=== PATIENT | female | born 1965 | race Caucasian/White ===

== ENCOUNTER → 2017-01-25 | Outpatient (CLI) | payer BC, OTHER ==
[2017-01-25 05:50] LABS: BASOPHILS % (AUTO) 1.1 % (0-1); EOSINOPHILS # (AUTO) 0.27 10*3/UL; HEMATOCRIT 39.8 % (37.0-47.0); HEMOGLOBIN 13.6 g/dL (12.0-16.0); LYMPHOCYTES # (AUTO) 3.34 10*3/uL; MEAN CORPUSCULAR HEMOGLOBIN 30.5 PG (27-31); MEAN CORPUSCULAR HGB CONC 34.2 g/dL (33-37); MEAN CORPUSCULAR VOLUME 89.2 FL (81-99); MEAN PLATELET VOLUME 8.7 FL (7.4-12.2); MONOCYTES # (AUTO) 0.72 10*3/UL (0.3-0.8); NEUTROPHILS # (AUTO) 4.51 10*3/UL; NEUTROPHILS % (AUTO) 50.4 % (50-80); RED BLOOD COUNT 4.46 10^6/uL (4.20-5.40)
[2017-01-25 05:59] LABS: BILIRUBIN,URINE NEGATIVE (NEG); COLOR,URINE YELLOW; GLUCOSE, URINE (UA) NEGATIVE (NEG); NITRATE,URINE NEGATIVE (NEG); OCCULT BLOOD,URINE MODERATE (NEG); PROTEIN,URINE NEGATIVE (NEG); UROBILINOGEN,URINE 0.2 mg/dL (0.2)
[2017-01-25 06:00] LABS: BLOOD UREA NITROGEN 13 mg/dL (7-22); BUN/CREATININE RATIO 18.57 (6-20); CALCIUM 9.3 mg/dL (8.7-10.7); CHOL/HDL RATIO 5.25 RATIO (0-4.0); CLARITY,URINE CLEAR (CLEAR); EST GLOMERULAR FILTRATION > 60 (>60 ml/min/1.73m(2)); HDL CHOLESTEROL 44 mg/dL (40-150); SERUM ALBUMIN 4.3 g/dL (3.5-4.8); SERUM CHOLESTEROL 231 mg/dL (120-200)
[2017-01-25 06:01] LABS: URINE SAMPLE TYPE CLEAN CATCH URINE
[2017-01-25 06:05] LABS: SQUAMOUS EPITHELIAL CELL,UR MANY
[2017-01-25 06:06] LABS: BACTERIA,URINE FEW; RENAL EPITHELIAL CELLS,URINE MODERATE; URINE CRYSTALS FEW
[2017-01-25 06:08] LABS: YEAST,URINE FEW
[2017-01-25 06:22] LABS: PLATELET MORPHOLOGY COMMENT NORMAL MORPHOLOGY (NORM); RBC MORPHOLOGY COMMENT NORMAL MORPHOLOGY (NORM); WBC MORPHOLOGY COMMENT NORMAL MORPHOLOGY (NORM)
== END ==
LOC: LAB 05:35
PROVIDERS: ATTEND Internal Medicine
DX: I10 Essential (primary) hypertension (principal); I49.9 Cardiac arrhythmia, unspecified; K21.9 Gastro-esophageal reflux disease without esophagitis; F17.200 Nicotine dependence, unspecified, uncomplicated
CPT/HCPCS: 36415; 80053; 80061; 81001; 84443; 85025

== ENCOUNTER 2017-04-02 16:42 | Emergency (ER) | payer BC, OTHER ==
[2017-04-02] MEDS ORDERED: Sodium Chloride 0.9% 1,000 ML PRIMARY IV ONE (17:11)
[2017-04-02] MEDS ORDERED: LORazepam 2 MG/1 ML VIAL IVP ONE (17:12)
[2017-04-02 17:21] VITALS: RESP 22; TEMP 97.5
[2017-04-02] MEDS ORDERED: HYDROmorphone 2 MG/1 ML ONE (18:04)
[2017-04-02] MEDS ORDERED: HYDROmorphone 2 MG/1 ML IVP ONE (18:06)
[2017-04-02] MEDS ORDERED: Amoxicill/Clav 875/125mg Tab 1 TAB TAB PO SCH (19:00)
--- NOTE | 2017-04-02 23:43 | PDOC ---
General Adult HPI - General Chief Complaint: Headache Stated Complaint: "panic attack"; ears stopped up; sinus pain on right Date Seen by Provider: 04/02/17 Time Seen by Provider: 16:50 Source: POSITIVE: Patient, Spouse Exam Limitations: POSITIVE: No limitations Nurse's Notes Reviewed & Considered: Yes - History of Present Illness Initial Comment: The patient is a 52-year-old female. She states that she is having a "panic attack". She describes paresthesias to her hands and feet. She states she has the sensation of "heart palpitations". She also has some headache. She complains of her ears feeling "stopped up" and she complains of pain over the right ethmoid and maxillary sinuses. She states she has a history of chronic recurring sinusitis and has had bilateral sinus surgery in the past. She states that she has an anxiety disorder with panic attacks. Have you received a tetanus shot in the past 10 years?: Unknown Body Location Affected: REPORTS: Head, Other (Ears stopped up and right-sided sinus pain) Timing: REPORTS: Gradual, Getting Worse Duration: >24 hours (About 2-3 days) Severity: Moderate Quality: REPORTS: "Pain" (As above) Context: REPORTS: None Modifying Factors: improves with: Nothing Similar Symptoms Previously: Yes Recent Care Received: REPORTS: Denies Any Prior Injuries Related to Current Complaint?: No - Patient Home Medications Home Medications: Home Medications Diphenhydramine HCl [Benadryl] 25 mg PO Q4H cap 03/31/16 Triamcinolone Acetonide 1 applic TOPICAL QID #1 tube 03/31/16 Estradiol 1 tab PO DAILY #30 tab 12/21/16 Bisoprolol Fumarate 1 tab PO DAILY #90 tab 03/02/17 Alprazolam 0.5 - 1 tab-cap PO TID PRN #60 tab 03/08/17 Carisoprodol 1 tab-cap PO TID #90 tab-cap 03/08/17 Lisinopril 1 tab PO DAILY #90 tab 03/08/17 Naproxen 1 tab PO QID tab 03/08/17 Oxycodone HCl 0.5 - 1 tab-cap PO Q6H PRN #50 tab-cap 03/08/17 Amoxicillin/Potassium Clav [Augmentin 875-125 Tablet] 1 each PO Q12H #19 tablet 04/02/17 - Patient Allergies Allergies/Adverse Reactions: Allergies Allergy/AdvReac Type Severity Reaction Status Date / Time prednisone Allergy Severe Anaphylaxis Verified 04/02/17 17:00 Sulfa (Sulfonamide Allergy Severe resulted Verified 04/02/17 17:00 Antibiotics) in Kidney problems codeine Allergy Intermediate RASH Verified 04/02/17 17:00 iodine Allergy Intermediate SWELLING Verified 04/02/17 17:00 ketorolac Allergy Intermediate HALLUCINATI Verified 04/02/17 17:00 ONS morphine Allergy Intermediate HALLUCINATI Verified 04/02/17 17:00 ONS pregabalin [From Lyrica] Allergy Intermediate RASH Verified 04/02/17 17:00 tizanidine Allergy tachycardia Verified 04/02/17 17:00 tramadol Allergy CHEST PAIN Verified 04/02/17 17:00 OR TIGHTNESS cyclobenzaprine HCl AdvReac Intermediate heart Verified 04/02/17 17:00 [From Flexeril] palpitaions Past Medical History - heen HEENT History: Denies History Cardiovascular History: Denies History Respiratory History: Denies History Gastrointestinal History: Denies History Genitourinary History: Denies History Endocrine History: Denies History Musculoskeletal History: Back Pain Prosthesis or Implant: No Additional Musculoskeletal History: LAMINECTOMY L4-5 Neurological History: Meningitis Blood Disorders: Denies History Psychiatric History: Denies History History of Sexually Transmitted Diseases: No Cancer History: Denies History In Past Year Been Physically Harmed or Verbally Threatened: No History of MDRO: No History of Other Communicable Diseases: No Tobacco Use: Current Every Day Smoker Alcohol Use: None Substance Use Type: None Previous Surgical History: Yes Anesthesia Reactions: No Malignant Hyperthermia: No Significant Family History: No pertinent family hx Past Medical History Reviewed: Reviewed - No Changes ROS - Limitations ROS Limitations: No Limitations Constitution: REPORTS: Other (Hyperventilating; "panic attack ") Cardiovascular: REPORTS: Heart Palpitations Respiratory: REPORTS: Other (Hyperventilating) Neurological: REPORTS: Headache Gastrointestinal: REPORTS: Denies GI Symptoms Endocrine: REPORTS: Denies Symptoms Musculoskeletal: REPORTS: Denies MS Symptoms Genitourinary: REPORTS: Denies Symptoms Eyes: REPORTS: Denies Symptoms ENT: REPORTS: Earache ("Ears stopped up, especially right "), Sinus Problem ( Discomfort over right ethmoid and maxillary sinus) Skin: REPORTS: Denies Skin Symptoms Lympathic: REPORTS: Denies Lympathic Symptoms Immunologic: POSITIVE: Denies Symptoms Psychiatric: POSITIVE: Anxiety General Adult Exam - General Appearance General Appearance: POSITIVE: Alert, Cooperative, No Acute Distress, No Evidence of Trauma, Anxious - HEENT HEENT: POSITIVE: Head Inspection Nml, Eyes Inspection Nml, Ears Inspection Nml, Oral/Dental Inspect. Nml, Pharynx Inspect. Nml, PERRL, EOMI, Other (Pain on percussion over right ethmoid and maxillary sinuses). NEGATIVE: Nose Inspection Nml (Congested) - Pupils Pupil Size: 3 mm: Bilateral (PERRLA) - Neck Neck: POSITIVE: Normal Inspection, Thyroid Normal - Respiratory Respiratory: POSITIVE: No Respiratory Distress, Breath Sounds Normal, Chest Non- Tender - Cardiovascular Cardiovascular: POSITIVE: Regular Rate & Rhythm, No Murmur, No Gallop, PMI Normal Peripheral Pulses: Radial (R): 2+, Radial (L): 2+ - Abdomen Abdomen: Soft: (All Quadrants), Normal Bowel Sounds: (All Quadrants), Denies Tenderness: (All Quadrants), No Splenomegaly: (All Quadrants), No Hepatomegaly: (All Quadrants), No Guarding: (All Quadrants), No Rebound: (All Quadrants), No Palpable Pulse: (All Quadrants), No Palpabale Mass: (All Quadrants), No Distention: (All Quadrants), No Rigidity: (All Quadrants) - Back Back: POSITIVE: Normal Inspection - Skin Skin: POSITIVE: Normal Color, Warm, Dry, No Rash - Extremities Extremity: Non-Tender: (All Extremities), Normal ROM: (All Extremities), Normal Inspection: (All Extremities) - Neurological / Psychological Neurological: POSITIVE: Oriented X3, 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 NEGATIVE: Affect Apporpriate (Anxious; hyperventilating) Images - Head Head: 1 - Discomfort on percussion over maxillary sinus 2 - Discomfort on percussion over ethmoid sinus General Adult Progress - Patient's Progress Pain Medication Addressed: POSITIVE: Yes (Patient given 2 mg of Ativan for her panic attack and 2 mg of Dilaudid IV) School/Work Release Addressed: POSITIVE: Not Applicable Re-Examine Time: 18:45 Re-Examine Comment: Patient's hyperventilation and agitation resolved on discharge. Patient states she feels much better. Patient started on Augmentin for her sinusitis. Status: POSITIVE: Improved, Re-Examined Antibiotics Given: Yes (Augmentin 875 mg twice daily) - Consult Counseled: POSITIVE: Patient, Family, RE: DX, RE: Need for F/U Patient Care Time - Estimated PCT Patient Care Time (In Minutes): 45 Vital Signs - Recent Vital Signs Vital Signs: Vital Signs (Last 8 hours) Temp Pulse Resp BP Pulse Ox 04/02/17 17:01 97.5 F 71 22 194/110 99 - VS Reviewed Vital Signs Reviewed: Yes Discharge Clinical Impression: Sinusitis, Anxiety Discharge Disposition: Discharged to Home Condition: Stable Prescriptions / Orders: Amoxicillin/Potassium Clav [Augmentin 875-125 Tablet] 1 each PO Q12H #19 tablet Additional Instructions: I believe you are having an exacerbation of your chronic sinusitis. You're also having a panic attack due to your underlying anxiety disorder. Augmentin, one twice daily for 10 days. Zyrtec or Claritin, one daily. Follow-up with your primary care provider. Return here anytime if condition worsens in any way. Follow Up With: GUI COLBERT [Primary Care Provider] - (Instructions as above. Follow-up with your primary care provider. Return as necessary.)
== END 2017-04-02 19:15 | disposition home or self-care (01) ==
LOC: SUPCPDRO 16:42 → ER 16:42
DX: F41.9 Anxiety disorder, unspecified (principal); J01.00 Acute maxillary sinusitis, unspecified; R20.2 Paresthesia of skin; R51 Headache; H92.01 Otalgia, right ear
CPT/HCPCS: 96361; 96374; 96375; 99282; 99283; J1170; J2060; J7030